=== PATIENT | female | born 1940 ===

== ENCOUNTER 2017-12-14 06:38 | Day surgery (SDC) | payer MEDICARE, OTHER, MEDICAID ==
[~2017-12-14 06:38] MED LIST: Buffered Lidocaine 0.9% SYRIN* 5 ML/SYR SYRINGE INTRADERM ONE; Lactated Ringers 1000 ML Bag* 1,000 ML IV SCH
[2017-12-14] MEDS ORDERED: ceFAZolin 2 GM PREMIX in ORs 2 GM/50 ML BAG IVPB ONE (07:04)
[2017-12-14] MEDS ORDERED: Buffered Lidocaine 0.9% SYRIN* 5 ML/SYR SYRINGE ONE (07:06)
[2017-12-14] MEDS ORDERED: Mineral Oil Sterile, TOPICAL* 25 ML BTL ONE (07:08)
[2017-12-14] MEDS ORDERED: Lidocaine 1% MPF wEPI 200,000* 30 ML SDV ONE (07:08)
[2017-12-14] MEDS ORDERED: Methylene Blue 0.5 %* 50 MG/10 ML AMP IV ONE (07:08)
[2017-12-14] MEDS ORDERED: Bupivacaine 0.25% SDV* 30 ML ONE (07:09)
[2017-12-14] MEDS ORDERED: Lidocain 1% EPI 1:100,000 * 30 ML MDV ONE (07:11)
[2017-12-14] MEDS ORDERED: Midazolam* 1 MG/ML 2 ML VIAL (2 MG) ONE (07:28)
[2017-12-14] MEDS ORDERED: fentaNYL* 50 MCG/ML 2 ML VIAL (100 MCG VIAL) ONE (07:28)
[2017-12-14] MEDS ORDERED: Propofol* 10 MG/ML 20 ML BTL IV PUSH ONE (09:13)
[2017-12-14] MEDS ORDERED: Naloxone* 0.4 MG/ML 1 ML VIAL IV PRN (09:16)
[2017-12-14 11:49] VITALS: BP 127/50
== END 2018-09-30 09:54 | disposition home or self-care (01) ==
LOC: OR 06:38
PROVIDERS: ATTEND Plastic Surgery
DX: C44.41 Basal cell carcinoma of skin of scalp and neck (principal); I25.10 Atherosclerotic heart disease of native coronary artery without angina pectoris; Z95.5 Presence of coronary angioplasty implant and graft; I25.2 Old myocardial infarction; Z86.711 Personal history of pulmonary embolism; I10 Essential (primary) hypertension; E78.5 Hyperlipidemia, unspecified; M79.7 Fibromyalgia; I69.369 Other paralytic syndrome following cerebral infarction affecting unspecified side; F32.9 Major depressive disorder, single episode, unspecified; K21.9 Gastro-esophageal reflux disease without esophagitis
CPT/HCPCS: 88305; 88331; 88332; A9270-GY; J0690; J2001; J2250; J2704; J3010